=== PATIENT | female | born 1950 | race Caucasian/White ===

== ENCOUNTER 2019-10-24 09:35 | Emergency (ER) | payer MEDICAID, MEDICARE ==
[~2019-10-24] VITALS: Ht 170.2 cm; Wt 69.9 kg
--- NOTE | 2019-10-24 09:56 | NUR ---
PT AMBULATORY TO ROOM FROM [facility]. ALL MONITORS IN PLACE. PILLOW UNDER LEFT ARM FOR SUPPORT AND COMFORT. LEFT SHOULD WITH DEFORMITY NOTED.
--- NOTE | 2019-10-24 10:01 | NUR ---
ZEN PURVIS AT BEDSIDE. ASSESSMENT REVIEWED, POC DISCUSSED AND QUESTIONS ANSWERED.
[2019-10-24] MEDS ORDERED: MORPHINE SULFATE 4 MG/ML, 1ML IVPush PRN (10:30)
[2019-10-24] MEDS ORDERED: ONDANSETRON 2MG/ML, 2ML ONE (10:50)
[2019-10-24] MEDS ORDERED: MORPHINE SULFATE 4 MG/ML, 1ML ONE (10:50)
--- NOTE | 2019-10-24 10:58 | NUR ---
DR CASTILLO AT BEDSIDE. XRAY RESULTS D/C POC DISCUSSED AND QUESTIONS ANSWERED. PT MED NOTED FOR PAIN.
[2019-10-24] MEDS ORDERED: ONDANSETRON 2MG/ML, 2ML IVPush ONE (11:00)
[2019-10-24 11:27] VITALS: BP 152/85
[2019-10-24] MEDS ORDERED: SODIUM CHLORIDE FLUSH 10ML SYR IVF ONE (11:30)
== END 2019-10-24 11:29 | disposition home or self-care (01) ==
LOC: ED 10:44
DX: S42.032A Displaced fracture of lateral end of left clavicle, initial encounter for closed fracture (principal); F17.200 Nicotine dependence, unspecified, uncomplicated; W19.XXXA Unspecified fall, initial encounter; Y93.89 Activity, other specified; Y92.098 Other place in other non-institutional residence as the place of occurrence of the external cause; Y99.8 Other external cause status
CPT/HCPCS: 73030; 96374; 96375; 99284; J2270; J2405